=== PATIENT | female | born 1950 | race Caucasian/White ===

== ENCOUNTER → 2020-10-16 | Emergency (ER) | payer OTHER ==
[~2020-10-16] VITALS: Ht 154.9 cm; Wt 77.1 kg
[~2020-10-16] MED LIST: AMOX-CLAV 875-1 EACH PO; AVAPRO150 MG; CALTRATE 600 W-1 TAB PO; IBERSANTAN PO; KETO10TA2 PO; MEDROLPACK PO; PAXIL20 MG PO; PRILOSEC OTC20 MG PO; SINGULAIR10 MG PO
== END | disposition home or self-care (01) ==
LOC: ER 08:15
DX: S01.521A Laceration with foreign body of lip, initial encounter (principal); S00.33XA Contusion of nose, initial encounter; W01.198A Fall on same level from slipping, tripping and stumbling with subsequent striking against other object, initial encounter; Y93.01 Activity, walking, marching and hiking; Y92.018 Other place in single-family (private) house as the place of occurrence of the external cause; Y99.8 Other external cause status